=== PATIENT | female | born 1990 | race Hispanic/Latino ===

== ENCOUNTER 2023-07-06 23:01 | Emergency (ER) | payer OTHER ==
--- OUTSIDE RECORDS SUMMARY | 2023-07-06 23:04 | XMS REPORT | Continuity of Care Document ---
:1990 Author Organization [facility] t Address [address] [facility] [address] [place] [address] Care Team Providers Name Role Phone Estrella Ellis Primary Care Physician [phone] Serafin Fleming Attending Clinician Unavailable VICTORINA NASH Attending Clinician Unavailable VICTORINA NASH Attending Clinician Unavailable Nael SINGH, Lyric Venegas Attending Clinician Unavailable Trimester, [facility] Res-1st Attending Clinician Unavailable Jennifer Kincaid MD Attending Clinician JENNIFER KINCAID Attending Clinician Unavailable Doctor Unassigned, [place] Attending Clinician Unavailable Ultrasound, Krystle Attending Clinician Unavailable Estrella Ellis Attending Clinician [phone] Santosh Correa MD Attending Clinician [phone] SANTOSH CORREA Attending Clinician Unavailable ESTRELLA KAHN Attending Clinician Unavailable LabZaida Attending Clinician Unavailable Payers Payer Name Policy Type Policy Number Effective Date Expiration Date S willa [place]ICAID OF [place] [id number] 2023 00:00:00 Problems Condition Condition Condition Status Onset Resolution Last Treating Co mments Source Name Details Category Date Date Treatment Clinician Date UTI in UTI in Disease Active Overview: Univer s 9-26 Formattin i ty of 00:00: g of this [place] 00 note Medical might be Branch different from the original. Pending ezekiel Abnormal Abnormal Disease Active Overview: Un prasad maternal maternal 06-02 Formattin ity of glucose glucose 00:00: g of this [place] tolerance, tolerance, 00 note Me dical antepartum antepartum might be Branch different from the original. Failed 1hr pending 3hr, repeat 3hr at 26weeks-p assed Supervisio Supervisio Disease Active U nivers n of n of 9- ity of high-risk high-risk 00:00: [place] s 00 [facility] Branch Multiparit Multiparit Disease Active U nivers y y 05-29 ity of 00:00: [place] 00 Medical Branch History of History of Disease Active Overview : Univers 05-29 Formattin ity of section section 00:00: g of this [place] 00 note Medical might be Branch different from the original. x1 ROR from [facility]- ow transvers e c sec see scanned records Desires ERCS Over Over Disease Active Univers weight weight 05-29 ity of 00:00: [place] 00 Medical Branch Family Family Disease Active Univers history of history of 7-26 it y of Downs Downs 00:00: [place] syndrome syndrome 00 Medica l Branch Family Family Disease Active Univers history of history of 7-26 it y of autism autism 00:00: [place] 00 Medical Branch Supervisio Supervisio Disease Active U nivers n of other n of other 7-25 it y of high risk high risk 00:[place] Me dical antepartum antepartum Br anch , second , second trimester trimester BV BV Disease Active Univers (bacterial (bacterial 7-25 it y of vaginosis) vaginosis[place] Nausea and Nausea and Disease Active U nivers vomiting vomiting 7-25 ity of during during 00:00: [place] 00 [facility] prior to prior to Branch 22 weeks 22 weeks gestation gestation Body mass Body mass Disease Active Uni vers index index 7-25 ity of (BMI) of (BMI) of 00:00: [place] 23.0-23.9 23.0-23.9 00 Medi pelon in adult in adult Branch [id number] Breech Problem [facility] delivery, Clinic not applicable or unspecifie d fetus [id number] Single Problem [facility] live [facility] [id number] Encounter Problem [facility] for Clinic supervisio n of other normal , third trimester Allergies, Adverse Reactions, Alerts Allergy Allergy Status Severity Reaction(s) Onset Inactive Treating Comm ents Source Name Type Date Date Clinician NO KNOWN Drug Active Univers ALLERGIE Class ity of S [facility] Social History Social Habit Start Date Stop Date Quantity Comments Source ASSERTION 2023-04-24 [facility] 00:00:00 [facility] intake 2023-06-30 2023-06-30 0 /d [facility] 00:00:00 00:00:00 [facility] History of Social 2023-06-30 2023-06-30 Univers ity of function 00:00:00 00:00:00 [facility] Tobacco use and 2014-02-06 2014-02-06 Smokeless Universit y of exposure 00:00:00 00:00:00 tobacco non-user [facility] Sex Assigned At [birth year] Universit y of 00:00:00 00:00:00 [facility] Smoking Status Start Date Stop Date Source Unknown if ever smoked [facility] Never smoked tobacco [facility] [place] Medications Ordered Filled Start Stop Current Ordering Indication Dosage Frequency Signature Comments Components Source Medication Medication Date Date Medication? Clinician (SIG) Name Name ketorolac 2022-09 No 15mg 15 mg, Unive rs (TORADOL) 07-04 Slow IV ity of injection 02:00: 01:28 Push, [place] 15 mg 00 :00 ONCE, 1 Medical dose, On Branch Thu07/03/23 at 2100, Routine FENTanyl PF 2022-09 No 50ug 50 mcg, Un prasad (SUBLIMAZE 07-03 Slow IV ity o f (PF)) 00:15: 23:31 Push, [place] injection 00 :00 ONCE, 1 Medical 50 mcg dose, On Branch 07/03/23 at 1915, Routine ondansetron 2022-09- No 4mg 4 mg, Slow Univers (ZOFRAN 07-03 IV Push, ity of (PF)) 23:30: 23:31 ONCE, 1 [place] injection 4 00 :00 dose, On Medi pelon mg Fri Branch 07/03/23 at 1830, RAJ ondansetron 2022-09- No 4mg 4 mg, Slow Univers (ZOFRAN 0-27 10- IV Push, ity of (PF)) 18:00: 18:13 ONCE, 1 [place] injection 4 00 :00 dose, On Medi pelon mg Fri Branch 07/03/23 at 1300, RAJ morpHINE (4 2022-09- No 4mg 4 mg, Slow Univers mg/mL) 0-27 10-27 IV Push, ity of injection 4 18:00: 18:13 ONCE, 1 [place] mg 00 :00 dose, On Medical Fri Branch 07/03/23 at 1300, STAT ampicillin 2022-09- Yes [id number] 500mg Take 1 Univers 500 mg 0-20 10-31 capsule by ity of capsule 00:00: 04:59 mouth 4 [place] 00 :00 (four) Medical times Branch daily for 10 days. ampicillin 2022-09- Yes [id number] 500mg Take 1 Univers 500 mg 0-20 10-31 capsule by ity of capsule 00:00: 04:59 mouth 4 [place] 00 :00 (four) Medical times Branch daily for 10 days. ampicillin 2022-09- Yes [id number] 500mg Take 1 Univers 500 mg 0-20 10-31 capsule by ity of capsule 00:00: 04:59 mouth 4 [place] 00 :00 (four) Medical times Branch daily for 10 days. ampicillin 2022-09- Yes [id number] 500mg Take 1 Univers 500 mg 0-20 10-31 capsule by ity of capsule 00:00: 04:59 mouth 4 [place] 00 :00 (four) Medical times Branch daily for 10 days. ampicillin 2022-09- Yes [id number] 500mg Take 1 Univers 500 mg 0-20 10-31 capsule by ity of capsule 00:00: 04:59 mouth 4 [place] 00 :00 (four) Medical times Branch daily for 10 days. ampicillin 2022-09- Yes [id number] 500mg Take 1 Univers 500 mg 0-20 10-31 capsule by ity of capsule 00:00: 04:59 mouth 4 [place] 00 :00 (four) Medical times Branch daily for 10 days. ampicillin 2022-09- Yes [id number] 500mg Take 1 Univers 500 mg 0-20 10-31 capsule by ity of capsule 00:00: 04:59 mouth 4 [place] 00 :00 (four) Medical times Branch daily for 10 days. ampicillin 2022- Yes [id number] 500mg Take 1 Univers 500 mg 9-26 10-07 capsule by ity of capsule 00:00: 04:59 mouth 4 [place] 00 :00 (four) Medical times Branch daily for 10 days. ampicillin 2022- Yes [id number] 500mg Take 1 Univers 500 mg 9-26 10-07 capsule by ity of capsule 00:00: 04:59 mouth 4 [place] 00 :00 (four) Medical times Branch daily for 10 days. ampicillin 2022- No [id number] 500mg Take 1 Univers 500 mg 9-26 10-07 capsule by ity of capsule 00:00: 04:59 mouth 4 [place] 00 :00 (four) Medical times Branch daily for 10 days. Yes [id number] 1{tbl} Take 1 U nivers qmf44-laqe- 9-22 tablet by ity of folic acid 00:00: mouth in [place] 29 mg iron- 00 the Medical 1 mg per morning. Branch tablet Yes [id number] 1{tbl} Take 1 U nivers ikw36-qibj- 9-22 tablet by ity of folic acid 00:00: mouth in [place] 29 mg iron- 00 the Medical 1 mg per morning. Branch tablet Yes [id number] 1{tbl} Take 1 U nivers wmh32-pjmt- 9-22 tablet by ity of folic acid 00:00: mouth in [place] 29 mg iron- 00 the Medical 1 mg per morning. Branch tablet Yes [id number] 1{tbl} Take 1 U nivers tml47-lauu- 9-22 tablet by ity of folic acid 00:00: mouth in [place] 29 mg iron- 00 the Medical 1 mg per morning. Branch tablet Yes [id number] 1{tbl} Take 1 U nivers snn33-ckkd- 9-22 tablet by ity of folic acid 00:00: mouth in [place] 29 mg iron- 00 the Medical 1 mg per morning. Branch tablet Yes [id number] 1{tbl} Take 1 U nivers ixe52-zhtd- 9-22 tablet by ity of folic acid 00:00: mouth in [place] 29 mg iron- 00 the Medical 1 mg per morning. Branch tablet Yes [id number] 1{tbl} Take 1 U nivers qqn70-crpf- 9-22 tablet by ity of folic acid 00:00: mouth in [place] 29 mg iron- 00 the Medical 1 mg per morning. Branch tablet Yes [id number] 1{tbl} Take 1 U nivers ksj29-pxnn- 9-22 tablet by ity of folic acid 00:00: mouth in [place] 29 mg iron- 00 the Medical 1 mg per morning. Branch tablet Yes [id number] 1{tbl} Take 1 U nivers vie95-aorv- 9-22 tablet by ity of folic acid 00:00: mouth in [place] 29 mg iron- 00 the Medical 1 mg per morning. Branch tablet Yes [id number] 1{tbl} Take 1 U nivers wuq41-vgzu- 9-22 tablet by ity of folic acid 00:00: mouth in [place] 29 mg iron- 00 the Medical 1 mg per morning. Branch tablet Yes [id number] 1{tbl} Take 1 U nivers rzq01-xdex- 9-22 tablet by ity of folic acid 00:00: mouth in [place] 29 mg iron- 00 the Medical 1 mg per morning. Branch tablet Kurvelo Kurvelo No 1{table QD Kurvelo 0.15-30 0.15-30 2-09 t} 0.15-30 MG-MCG MG-MCG 00:00: MG-MCG 00 Vitafol Vitafol 2015-09 Yes Serafin 1 capsule H ope Ultra Ultra 1-14 [facility] 00:00: 00 Vitafol Vitafol 2015-09 No 1{capsu QD Vitafol Ultra Ultra 1-14 le} Ultra 29-0.6-0.4- 29-0.6-0.4- 00:00: 29-0.6-0.4 200 MG 200 MG 00 -200 MG Vitafol Vitafol 2015-09 No 1{capsu QD Vitafol Ultra Ultra 1-14 le} Ultra 29-0.6-0.4- 29-0.6-0.4- 00:00: 29-0.6-0.4 200 MG 200 MG 00 -200 MG Vitafol Vitafol 2015-09 No 1{capsu QD Vitafol Ultra Ultra 1-14 le} Ultra 29-0.6-0.4- 29-0.6-0.4- 00:00: 29-0.6-0.4 200 MG 200 MG 00 -200 MG Vitafol Vitafol No 1{capsu QD Vitafol Ultra Ultra 6-30 le} Ultra 29-0.6-0.4- 29-0.6-0.4- 00:00: 29-0.6-0.4 200 MG 200 MG 00 -200 MG Vitafol Vitafol No 1{capsu QD Vitafol Ultra Ultra 6-30 le} Ultra 29-0.6-0.4- 29-0.6-0.4- 00:00: 29-0.6-0.4 200 MG 200 MG 00 -200 MG Vitafol Vitafol No 1{capsu QD Vitafol Ultra Ultra 6-30 le} Ultra 29-0.6-0.4- 29-0.6-0.4- 00:00: 29-0.6-0.4 200 MG 200 MG 00 -200 MG Vitafol Vitafol No 1{capsu QD Vitafol Ultra Ultra le} Ultra 29-0.6-0.4- 29-0.6-0.4- 29-0.6-0.4 200 MG 200 MG -200 MG Vitafol Vitafol No 1{capsu QD Vitafol Ultra Ultra le} Ultra 29-0.6-0.4- 29-0.6-0.4- 29-0.6-0.4 200 MG 200 MG -200 MG Vitafol Vitafol No 1{capsu QD Vitafol Ultra Ultra le} Ultra 29-0.6-0.4- 29-0.6-0.4- 29-0.6-0.4 200 MG 200 MG -200 MG Immunizations Ordered Filled Date Status Comments Source Immunization Name Immunization Name Fluarix 0.5 ml Fluarix 0.5 ml 2016-06-26 Completed [facility] linic quadrivalent- quadrivalent- 16:40:00 preservative free preservative free Fluarix 0.5 ml Fluarix 0.5 ml 2016-06-26 Completed [facility] linic quadrivalent- quadrivalent- 16:40:00 preservative free preservative free Fluarix 0.5 ml Fluarix 0.5 ml 2016-06-26 Completed [facility] linic quadrivalent- quadrivalent- 16:40:00 preservative free preservative free IMM TDAP - ADULT IMM TDAP - ADULT 2014-06-06 Completed [facility] STOCK STOCK 17:17:00 IMM TDAP - ADULT IMM TDAP - ADULT 2014-06-06 Completed [facility] STOCK STOCK 17:17:00 IMM TDAP - ADULT IMM TDAP - ADULT 2014-06-06 Completed [facility] STOCK STOCK 17:17:00 Fluarix 0.5mL Fluarix 0.5mL 2014-06-06 [facility] Cli giovany (IIV4) 3+ Years (IIV4) 3+ Years 17:08:00 Single-Dose Single-Dose Fluarix 0.5mL Fluarix 0.5mL [facility]+ [facility] (IIV4) 3+ Years 17:08:00 Single-Dose Single-Dose Fluarix 0.5mL Fluarix 0.5mL 2014-06-06 [facility] giovany (IIV4) 3+ Years (IIV4) 3+ Years 17:08:00 Single-Dose Single-Dose Influenza Virus Unknown Completed Universit y of Vaccine Quad IM, [facility] dical Preserv and ABX Branch Free 6 MO-64 YRS (FLUCELVAX) Influenza Virus Unknown Completed Universit y of Vaccine Quad IM, [facility] dical Preserv and ABX Branch Free 6 MO-64 YRS (FLUCELVAX) Influenza Virus Unknown Completed Universit y of Vaccine Quad IM, [facility] dical Preserv and ABX Branch Free 6 MO-64 YRS (FLUCELVAX) Influenza Virus Unknown Completed Universit y of Vaccine Quad IM, [facility] dical Preserv and ABX Branch Free 6 MO-64 YRS (FLUCELVAX) Influenza Virus Unknown Completed Universit y of Vaccine Quad IM, [facility] dical Preserv and ABX Branch Free 6 MO-64 YRS (FLUCELVAX) Influenza Virus Unknown Completed Universit y of Vaccine Quad IM, [facility] dical Preserv and ABX Branch Free 6 MO-64 YRS (FLUCELVAX) Influenza Virus Unknown Completed Universit y of Vaccine Quad IM, [facility] dical Preserv and ABX Branch Free 6 MO-64 YRS (FLUCELVAX) Vital Signs Vital Name Observation Time Observation Value Comments Source Systolic blood 2023-07-04 01:30:00 102 mm[Hg] Univer sity of pressure [facility] Diastolic blood 2023-07-04 01:30:00 60 mm[Hg] Unive rsity of [facility] Heart rate 2023-07-04 01:30:00 85 /min [facility] Body temperature 2023-07-04 01:30:00 36.72 Zohra [facility] Respiratory rate 2023-07-04 01:30:00 16 /min [facility] Oxygen saturation in 2023-07-04 01:30:00 100 /min [facility] Arterial blood by [facility] Pulse oximetry Branch Body weight 2023-07-03 17:49:00 65.772 kg [facility] BMI 2023-07-03 17:49:00 24.13 kg/m2 [facility] Systolic blood 2023-06-30 14:23:00 114 mm[Hg] Univer sity of [facility] Diastolic blood 2023-06-30 14:23:00 72 mm[Hg] Unive rsity of [facility] Heart rate 2023-06-30 14:23:00 78 /min [facility] ty [facility] Body temperature 2023-06-30 14:23:00 35.83 [facility] 2023-06-30 14:23:00 16 /min [facility] Body height 2023-06-30 14:23:00 165.1 cm [facility] [place] [facility] Body weight 2023-06-30 14:23:00 75.978 kg [facility] BMI 2023-06-30 14:23:00 27.87 kg/m2 Universi ty of [place] [facility] Systolic blood 2023-06-26 15:29:00 117 mm[Hg] Univer sity of pressure [place] [facility] Diastolic blood 2023-06-26 15:29:00 71 mm[Hg] Unive rsity of pressure [place] [facility] Heart rate 2023-06-26 15:29:00 75 /min Universi ty of [place] [facility] Body temperature 2023-06-26 15:29:00 36.17 Zohra Univ ersity of [place] [facility] Respiratory rate 2023-06-26 15:29:00 18 /min Univ ersity of [place] [facility] Body height 2023-06-26 15:29:00 165.1 cm Universi ty of [place] [facility] Body weight 2023-06-26 15:29:00 76.295 kg Universi ty of [place] [facility] BMI 2023-06-26 15:29:00 27.99 kg/m2 Universi ty of [place] [facility] Systolic blood 2023-05-29 19:12:00 96 mm[Hg] Univer sity of pressure [place] [facility] Diastolic blood 2023-05-29 19:12:00 68 mm[Hg] Unive rsity of pressure [place] [facility] Heart rate 2023-05-29 19:12:00 77 /min Universi ty of [place] [facility] Body temperature 2023-05-29 19:12:00 35.94 Zohra Univ ersity of [place] [facility] Respiratory rate 2023-05-29 19:12:00 18 /min Univ ersity of [place] [facility] Body height 2023-05-29 19:12:00 165.1 cm Universi ty of [place] [facility] Body weight 2023-05-29 19:12:00 75.206 kg Universi ty of [place] [facility] BMI 2023-05-29 19:12:00 27.59 kg/m2 Universi ty of [place] [facility] temperature 2022-10-16 10:30:00 98.8 [degF] [facility] heart rate 2022-10-16 10:30:00 73 /min [facility] height-cm 2022-10-16 10:30:00 162.56 cm [facility] gi[facility]any weight-kg 2022-10-16 10:30:00 74.48 kg [facility]any bmi 2022-10-16 10:30:00 28.18 kg/m2 [facility] giovany blood pressure 2022-10-16 10:30:00 132 mm[Hg] [facility] systolic blood pressure 2022-10-16 10:30:00 80 mm[Hg] [facility] diastolic Procedures Procedure Date / Time Performing Clinician Source Performed US FIRST 2023-07-03 22:18:47 Victorina Nash [facility] TRIMESTER LESS THAN 14 Medical B ranch WEEKS WITH TRANSVAGINAL COMP. METABOLIC PANEL 2023-07-03 18:12:00 Zia Nashemy [facility] ([id number]) [facility] TOTAL BETA HCG ASSAY 2023-07-03 18:12:00 Zia Nashemy [facility] CBC WITH DIFF 2023-07-03 18:12:00 [facility] PROTHROMBIN TIME / INR 2023-07-03 18:12:00 [facility] HB ABO GROUPING 2023-07-03 18:12:00 [facility] o [facility] CONSENT/REFUSAL FOR 2023-07-03 16:49:12 Doctor Unassigned, No [facility] DIAGNOSIS AND TREATMENT Name [facility] TOTAL BETA HCG ASSAY 2023-06-30 15:46:00 Juan J Haile [facility] EXTERNAL PROVIDER 2023-06-29 05:01:00 Doctor Unassigned, No Univ [facility] RECORDS Name [facility] FIRST TRIMESTER 2023-06-26 17:15:00 Estrella Kahn [facility] ULTRASOUND Medical Branch FLU VACC ([id number]), 6 2023-06-26 15:43:16 Estrella Kahn [facility] MO-64 YRS, .5ML, IM, Medical Bra [facility] QUAD (FLUCELVAX) POCT URINALYSIS 2023-06-26 15:31:00 Estrella Kahn [facility] 3 HR GLUCOSE TOLERANCE 2023-06-05 16:43:00 Estrella Kahn [facility] 2 HR GLUCOSE TOLERANCE 2023-06-05 15:43:00 Estrella Kahn [facility] 1 HR GLUCOSE TOLERANCE 2023-06-05 14:43:00 Estrella Kahn [facility] GLUCOSE FASTING 2023-06-05 13:43:00 Estrella Kahn [facility] 3 HR GLUCOSE TOLERANCE 2023-06-05 13:43:00 Estrella Kahn [facility] POCT URINALYSIS W/O 2023-05-29 19:13:00 Estrella Kahn Uni versity [facility] SPECIFIC GRAVITY [facility] POCT TEST 2023-05-29 19:00:00 Estrella Kahn Uni [facility] ASSIGNMENT OF BENEFITS 2023-05-29 18:30:12 Doctor Unassigned, No [facility] Encounters Start End Encounter Admission Attending Care Care Encounter Source Date/Time Date/Time Type Type Clinicians Facility Department ID 2022-10-20 Outpatient THIERRY Fleming T[place]MAGE [id number] [facility] 11:39:01 Serafin 0213 [facility] 2022-10-16 Outpatient Lonnie [facility] [id number] [facility] 09:44:00 Serafin 0209 [facility] 2022-09-12 Outpatient THIERRY Fleming [place] [id number] [facility] 11:19:00 Serafin 0106 [facility] 2023-07-07 2023-07-07 Outpatient R [facility] [id number] Univers 09:40:00 09:40:00 silviay [facility] 2023-07-03 2023-07-03 Emergency X VICTORINA NASH [facility] ERT 1 [id number] Univers 12:02:00 20:44:00 [facility] 2023-07-03 2023-07-03 Emergency Saad, TRAUMA [id number] Univers 12:02:00 20:44:00 Victorina PEREZ 350.1.13.10 it [place] [id number] [address] 2023-07-03 2023-07-03 Outpatient P [facility] [id number] Univers 15:30:00 15:30:00 ity of [facility] 2023-07-03 2023-07-03 Nurse YUDITH Nayak [id number] Univers 00:00:00 00:00:00 Triage Lyric Venegas LYSSA 350.1.13.10 it y of HOSPITAL 4.2.7.2.686 [place] as [id number] [facility] 019 Branch 2023-06-30 2023-06-30 Routine Trimester, [facility] Res-1st UNIVERSIT [id number] Univers 09:20:00 10:50:48 Jennifer Kincaid [facility] 350.1.13.[address] [facility] 4.2.7.2.[place] [id number] [facility] 113 Branch 2023-06-30 2023-06-30 Outpatient R AMPARO [facility] [id number] Univers 09:20:00 10:50:48 [facility] 2023-06-29 2023-06-29 Orders Doctor YUDITH [id number] Univers 00:00:00 00:00:00 Only Unassigned, LYSSA 350.1.13.10 ity of [place] [facility] 4.2.7.2.686 [place] as [id number] [facility] 009 Latta 2023-06-26 2023-06-26 Telephone Information Supervisor Ultrasound, [facility] 1.2 .840.114 [id number] Univers 11:30:00 12:17:01 Visit Estrella Kahn [employer] 350.1.13. 10 [facility] 4.2.7.2 .686 [place] MATERNAL [id number] Med ical & CHILD [address] [place] [address] 2023-06-26 2023-06-26 Outpatient P SUNNY [facility] [id number] Univers 11:30:00 12:17:01 SANTOSH ity [facility] 2023-06-26 2023-06-26 [facility]ine [facility] [id number] Univers 10:30:00 12:16:52 Estrella C [employer] 350.1.13.10 ity of Visit [facility] 4.2.7.2.686 [place] as MATERNAL [id number] [facility] & CHILD [address] [place] [address] 2023-06-05 2023-06-05 Outpatient R CRISS [facility] [id number] Univers 08:30:00 08:46:41 ESTRELLA velázquez o f [facility] 2023-06-05 2023-06-05 Telephone Information Supervisor Lab, Ang-Rmchp [facility] 1.2.840. [id number] Univers 08:30:00 08:46:41 Visit Criss Estrella C [employer] 350.1.13. 10 ity of REGIONAL 4.2.7.2.686 [place] as MATERNAL [id number] [facility] & [address] 2023-06-02 2023-06-02 Telephone [facility] [id number] Univers 00:00:00 00:00:00 Estrella C [employer] HANGER 350.1.13.10 ity of REGIONAL 4.2.7.2.686 [place] as MATERNAL [id number] [facility] & [address] 2023-05-29 2023-05-29 Initial [facility] [id number] Univers 13:45:00 15:09:15 Estrella C [employer]ER 350.1.13.10 ity of Visit [facility] 4.2.7.2.686 [place] as MATERNAL [id number] [facility] & CHILD [address] [place] [address] 2023-05-29 2023-05-29 [facility] [id number] Univers 13:45:00 15:09:15 ESTRELLA velázquez o [facility] 2023-05-29 2023-05-29 Orders Doctor ZURITA 1.2.840.114 [id number] Univers 00:00:00 00:00:00 Only Unassigned, LYSSA 350.1.13.10 ity of [place] [facility] 4.2.7.2.686 [place] as [id number] [place] [address] Branch 2022-12-24 2022-12-24 Outpatient [facility] Remy 14:45:54 14:45:54 [id number] F Raul 2022-10-16 2022-10-16 (NEW [facility]) THIERRY GUADARRAMA [id number] [facility] 00:00:00 00:00:00 [facility] 2022-10-16 2022-10-16 (TEL) THIERRY GUADARRAMA [id number] Ho pe 00:00:00 00:00:00 [facility] 2022-09-17 2022-09-17 Outpatient [facility] Remy 15:49:57 15:49:57 [id number] F Raul 2018-06-03 2018-06-03 Outpatient [facility] [id number] [facility] 15:15:00 15:15:00 [facility] Results Test Description Test Time Test Comments Results Result Comments Source TOTAL [facility]ANT[facility] 2023-07-03 21:41:09 Test Item Value Reference Range Interpretation Comme nts BETA HCG (test code = 05360.00 See_Comment [Auto mated message] The [id number]) system which ge nerated this result transmit tigist reference range : Non- fe male and male patients: <5 mIU/mL. The reference r татьяна was not used to interpr et this result as danette l/abnormal. ELIAS (test code = ELIAS) Gestational Age ?Range (mIU/mL) 1-10 ?Weeks ?[id number] Weeks ?45067-10266918-84 Weeks ?4261-09037843-36 Weeks ?1780-750902 Biotin has been reported to cause a negative bias, interpret results relative to patient's use of biotin. [facility]. METABOLIC PANEL ([id number])2023-07-03 19:17:21 Test Item Value Reference Range Interpretation Comments NA (test code = 141 mmol/L 135-145 0733998101) K (test code = 4.0 mmol/L 3.5-5.0 5853400099) CL (test code = 106 mmol/L 98-108 3416061649) CO2 TOTAL (test code = 25 mmol/L 23-31 8563222224) AGAP (test code = 10 2-16 3557752480) BUN (test code = 6 mg/dL 7-23 L 5003497507) GLUCOSE (test code = 87 mg/dL 70-110 2639783768) CREATININE (test code = 0.58 mg/dL 0.50-1.04 3439490972) TOTAL BILI (test code = 1.1 mg/dL 0.1-1.2 1549450459) CALCIUM (test code = 9.8 mg/dL 8.6-10.6 6262804781) T PROTEIN (test code = 7.6 g/dL 6.3-8.2 3290675205) ALBUMIN (test code = 4.6 g/dL 3.5-5.0 1991453144) ALK PHOS (test code = 87 U/L 34-122 3179986210) ALTv (test code = 44 U/L 5-35 H 1741-6) AST(SGOT) (test code = 32 U/L 13-40 5329464232) eGFR (test code = 121.3 mL/min/1.73m2 0338627124) ELIAS (test code = ELIAS) Association of Glomerular Filtration Rate (GFR) and Staging of Kidney Disease* + --+ --+ ------+| GFR (mL/min/1.73 m2) ?| With Kidney Damage ?| ?Without Kidney Damage+ --------+ --------+ +| ?>90 ?| ?Stage one ?| ? Normal ?+ ---+ ---+ -------+| ?60-89 ?| ?Stage two ?| ? Decreased GFR ? + --+ --+ ------+| ?30-59 ?| ?Stage three ?| ? Stage three ? + --+ --+ ------+| ?15-29 ?| ?Stage four ? | ? Stage four ?+ ---+ ---+ -------+| ?<15 (or dialysis) ? ?| ?Stage five ? | ? Stage five ?+ ---+ ---+ -------+ *Each stage assumes the associated GFR level has been in effect for at least three months. ?Stages 1 to 5, with or without kidney disease, indicate chronic kidney disease. Notes: Determination of stages one and two (with eGFR >59mL/min/1.73 m2) requires estimation of kidney damage for at least three months as defined by structural or functional abnormalities of the kidney, manifested by either:Pathological abnormalities or Markers of kidney damage (including abnormalities in the composition of the blood or urine or abnormalities in imaging tests). Lab Interpretation Abnormal (test code = 23635-6) [facility] TexasProthrombin Time / [id number] 18:46:59 Test Item Value Reference Range Interpretation Comments PROTIME PATIENT (test 11.8 See_Comment [Auto mated message] code = 5964-2) The system [employer] ich generated this result transmitted ref erence range: 10.1 - 1 2.6 Seconds. The re ference range was not u sed to interpret this result as normal/abnor mal. INR (test code = 6301-6) 1.0 Nor mal INR <1.1; Warfarin Therap eutic range 2.0 to 3. 0 or 2.5 to 3.5, dep ending upon the indica tions. Lab Interpretation (test Normal code = 68255-2) [facility] TexasCBC WITH [id number] 18:44:57 Test Item Value Reference Range Interpretation Comments WBC (test code = 8.22 See_Comment [Automated 1190-2) message] The sy stem which generated this result transmitted reference range : 4.30 - 11.10 10*3/?L. The reference range was not used to interpret this result as normal/abnormal . RBC (test code = 4.42 See_Comment [Automated 729-8) message] The sy stem which generated this result transmitted reference range : 3.93 - 5.25 10*6/?L. The reference range was not used to interpret this result as normal/abnormal . HGB (test code = 13.7 g/dL 11.6-15.0 718-7) HCT (test code = 40.5 % 35.7-45.2 4544-3) MCV (test code = 91.6 fL 80.6-95.5 787-2) MCH (test code = 31.0 pg 25.9-32.8 785-6) MCHC (test code = 33.8 g/dL 31.6-35.1 786-4) RDW-SD (test code = 39.7 fL 39.0-49.9 99310-9) RDW-CV (test code = 11.8 % 12.0-15.5 L 788-0) PLT (test code = 192 See_Comment [Automated 777-3) message] The sy stem which generated this result transmitted reference range : 166 - 358 10*3/ ?L. The reference r татьяна was not used to interpret this result as normal/abnormal . MPV (test code = 11.4 fL 9.5-12.9 78838-0) NRBC/100 WBC (test 0.0 See_Comment [Automat ed code = 1248888839) message] The system which generated this result transmitted reference range : 0.0 - 10.0 /100 WBCs. The refer ence range was not u sed to interpret th is result as normal/abnormal . NRBC x10^3 (test code See_Comment [Auto mated = 1431059763) message] The s ystem which generated this result transmitted reference range : 10*3/?L. The reference range was not used to interpret this result as normal/abnormal . GRAN MAT (NEUT) % 67.5 % (test code = 770-8) IMM GRAN % (test code 0.20 % = 5091902093) LYMPH % (test code = 26.9 % 736-9) MONO % (test code = 4.5 % 5905-5) EOS % (test code = 0.5 % 713-8) BASO % (test code = 0.4 % 706-2) GRAN MAT x10^3(ANC) 5.55 10*3/uL 1.88-7.09 (test code = 8592435406) IMM GRAN x10^3 (test 0.00-0.06 code = 7539198666) LYMPH x10^3 (test code 2.21 10*3/uL 1.32-3.29 = 731-0) MONO x10^3 (test code 0.37 10*3/uL 0.33-0.92 = 742-7) EOS x10^3 (test code = 0.04 10*3/uL 0.03-0.39 711-2) BASO x10^3 (test code 0.03 10*3/uL 0.01-0.07 = 704-7) Lab Interpretation Abnormal (test code = 28119-5) [facility] TexasType and Screen - ONCE [id number] 18:40:00 Test Item Value Reference Range Interpretation Comments ABO & RH (test code = 20) O POSITIVE IAT (test code = 1185) Negative [facility] TexasPONC URINALYSIS W SPECIFIC [id number] 15:31:00 Test Item Value Reference Range Interpretation Comments POCT U SP GRAV (test code = 3255) . 1.005-1.025 POCT PH U (test code = 3254) . 5-8 POCT U LEUK EST (test code = 3263) . Negative - Negative POCT U NIT (test code = 3262) . Negative - Negative POCT U PROT (test code = 3259) TRACE Negative - Negative POCT U GLU (test code = 3256) NEG Negative - Negative POCT U KETONE (test code = 3258) . Negative - Negative POCT U UROBILI (test code = 3260) . 0.2-1 POCT U BILI (test code = 3261) . Negative - Negative POCT U BLD (test code = 3257) . Negative - Negative POCT U COLOR (test code = 3266) . POCT U APPEAR (test code = 3267) . [facility] HR GLUCOSE TOLERANCE [id number] 05:25:57 Test Item Value Reference Range Interpretation Comments GLUC 3 HR (test code = 0383679340) 81 mg/dL 70-110 Lab Interpretation (test code = Normal 81399-9) [facility] TexasPOCT URINALYSIS W/O SPECIFIC [id number] 19:14:00 Test Item Value Reference Range Interpretation Comments POCT PH U (test code = 3254) 6 mg/dl 5-8 POCT U LEUK EST (test code = 1+ Negative - Negative 3263) POCT U NIT (test code = 3262) neg Negative - Negative POCT U PROT (test code = 3259) trace Negative - Negative POCT U GLU (test code = 3256) neg Negative - Negative POCT U KETONE (test code = 3258) neg Negative - Negative POCT U BLD (test code = 3257) neg Negative - Negative [facility] TexasPOCT [id number] 19:00:00 Test Item Value Reference Range Interpretation Comments POCT PREG (test code = 1605) Positive On board controls acceptable with C Yes Line (test code = 3574) POCT PREG LOT # (test code = 3575) POCT PREG TEST DATE (test code = 3576) [facility] TexasPa age-based with STD [id number] 00:00:00 Test Item Value Reference Range Interpretation Comments 46455-1 (test code = 34872-1) . Chlamydia, Nuc. Acid Amp (test code Negative Negative = 28804-5) DIAGNOSIS: (test code = 93659-4) Gonococcus, Nuc. Acid Amp (test code Negative Negative = 56439-9) HPV Aptima (test code = 85641-8) Negative Negative Performed by: (test code = 67350-8) Specimen adequacy: (test code = 04727-4) Test Methodology: (test code = 40512-3)"
[2023-07-06] MEDS ORDERED: NA CHLORIDE 0.9% 1,000 ML ONE (23:42)
[2023-07-06 23:45] LABS: Absolute Lymphocytes (CBC) 2.9 K/uL (0.7-4.9); Lymphocytes % 27.3 % (15.3-44.8); MCV 92.3 fL (80-100); MPV 9.6 fL (7.6-11.3); Platelets 195 thou/uL (152-406); RBC Red Blood Cell Count 4.33 M/uL (3.86-4.86)
[2023-07-06] MEDS ORDERED: ONDANSETRON 4 MG/2 ML VIAL ONE (23:58)
[2023-07-06] MEDS ORDERED: MORPHINE 4 MG/ML SYR ONE (23:58)
--- NOTE | 2023-07-07 01:00 | ER ---
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 , 12 WK bp PREG. Coronavirus screen: At this time, the client does not indicate any symptoms associated with coronavirus-19. Ebola Screen: No symptoms or risks identified at this time. Initial Sepsis Screen: Does the patient meet any 2 criteria? No. Patient's initial sepsis screen is negative. Does the patient have a suspected source of infection? No. Patient's initial sepsis screen is negative. Risk Assessment: Do you want to hurt yourself or someone else? Patient reports no desire to harm self or others. Onset of symptoms was July 06, 2023 at 22:30. 23:16 Method Of Arrival: Wheelchair bp 23:16 Acuity: SARA 3 bp Triage Assessment: 23:17 General: Appears distressed, Behavior is cooperative, appropriate for age, anxious. bp Pain: Complains of pain in pelvis. : Reports vaginal bleeding that is with clots. Derm: Skin is pale. Historical: - Allergies: 23:17 No Known Allergies; bp - Home Meds: 23:17 None [Active]; bp - PMHx: 23:17 None; bp - Immunization history:: Adult Immunizations up to date. - Social history:: Smoking status: Patient denies any tobacco usage or history of. - Family history:: not pertinent. Screenin/31 00:25 [facility] ED Fall Risk Assessment (Adult) History of falling in the last 3 months, nw1 including since admission No falls in past 3 months (0 pts) Confusion or Disorientation No (0 pts) Intoxicated or Sedated No (0 pts) Impaired Gait No (0 pts) Mobility Assist Device Used No (0 pt) Altered Elimination No (0 pt) Score/Fall Risk Level 0 - 2 = Low Risk Oriented to surroundings, Maintained a safe environment, Educated pt \T\ family on fall prevention, incl call for assistance when getting out of bed, Assessed \T\ reinforced patient's understanding of fall precautions, Provided non-skid footwear, Hourly rounding (assess needs \T\ fall precautionary measures) done, Used ambulatory aids as needed (educated on \T\ assisted with). Abuse screen: Denies threats or abuse. Denies injuries from another. Nutritional screening: No deficits noted. Tuberculosis screening: No symptoms or risk factors identified. Assessment: 00:12 General: Appears uncomfortable, Behavior is calm, cooperative, appropriate for age. nw1 Neuro: No deficits noted. Cardiovascular: No deficits noted. Respiratory: No deficits noted. GI:. GI: No deficits noted. Reports lower abdominal pain, upper abdominal pain, Pt is 12 weeks and was told by [facility] that she is miscarrying. Pt started feeling symptoms today at 1999. Pt is currently passing blood and blood clots. States discomfort. : No deficits noted. Derm: No deficits noted. Musculoskeletal: No deficits noted. 01:19 Reassessment: PT UP TO RESTROOM WITH TO ASSIST. nw1 Vital Signs: 07/06 23:16 BP 111 / 79; Pulse 89; Resp 18; Temp 98; Pulse Ox 98% ; Weight 75.75 kg; Height 5 ft. 5 bp in. ; 07/07 00:16 BP 128 / 84; Pulse 85; Resp 17; Pulse Ox 100% on R/A; nw1 01:18 BP 116 / 59; Pulse 81; Resp 16; Pulse Ox 100% on R/A; nw1 07/06 23:16 Body Mass Index 27.79 (75.75 kg, 165.1 cm) bp Vitals: 01:18 Cardiac Rhythm Assessment Regular Sinus rhythm. nw1 [place]aritan Coma Score: 00:25 Eye Response: spontaneous(4). Motor Response: obeys commands(6). Verbal Response: nw1 oriented(5). Total: 15. ED Course: 07/06 23:07 Patient arrived in ED. jj6 23:08 Akash Barajas MD is Attending Physician. sp4 23:17 Triage completed. bp 23:17 Arm band placed on. bp 23:25 Whitney Lebron, RN is Primary Nurse. nw1 23:34 CBC with Diff Sent. cg3 23:34 CMP Sent. cg3 23:34 Inserted saline lock: 20 gauge in right antecubital area, using aseptic technique. cg3 Blood collected. 23:52 Quantitative Hcg Sent. 23:52 CBC with Diff Sent. 23:52 CMP Sent. 23:52 Lipase Sent. nw 23:52 Urinalysis w/ reflexes Sent. nw07/07 00:18 US OB Limited In Process Unspecified. EDMS 00:25 Patient has correct armband on for positive identification. Placed in gown. Bed in low nw1 position. Call light in reach. Side rails up X2. Adult w/ patient. Provided Education on: POC. Client placed on continuous cardiac and pulse oximetry monitoring. NIBP monitoring applied. Door closed. Noise minimized. Warm blanket given. Verbal reassurance given. 00:25 Assist provider with pelvic exam: Set up pelvic tray. Performed by Akash Barajas MD nw1 Patient tolerated poorly. 00:30 Initiated transfer with Carmen at [facility]. rv1 00:53 [facility] by Dr. Sanchez. rv1 01:32 Called Van with EMS for transfer truck, given 20 min ETA. rv1 Administered Medications: 07/06 23:43 Drug: NS 0.9% IV 1000 ml IV at 1 bolus Per protocol; 1000 mL bolus Route: IV; Rate: 1 nw bolus; Site: right antecubital; 23:52 Drug: morphine IVP or IV 4 mg IVP once over 4 mins Route: IVP; Infused Over: 4 mins; nw1 Site: right antecubital; 07/07 00:05 Follow up: Response: No adverse reaction 07/06 23:52 Drug: Ondansetron IVP 4 mg IVP once; over 2 minutes Route: IVP; Site: right antecubital;nw07/07 00:05 Follow up: Response: No adverse reaction :26 Drug: D5-NS IV 1000 ml IV at 125 ml/hr continuous Route: IV; Rate: 125 ml/hr; Site: nw1 right antecubital; : Drug: Ketorolac IVP 30 mg IVP once Route: IVP; Site: right antecubital; nw1 :27 Drug: morphine IVP or IV 4 mg IVP once over 4 mins Route: IVP; Infused Over: 4 mins; nw1 Site: right antecubital; 01:27 Drug: Ondansetron IVP 4 mg IVP once; over 2 minutes Route: IVP; Site: right antecubital;nw1 Medication: 00:25 VIS not applicable for this client. nw1 Outcome: 00:59 ER care complete, transfer ordered by . [email or web address] 02:08 Transferred by ground EMS to [facility], nw1 02:08 Condition: stable 02:08 Demonstrated understanding of need for transfer 02:09 Patient left the ED. nw1 Signatures: Dispatcher [employer] EDBlayne Awad, RN RN Marry Poe6 Raquel Putnam rv1 Akash Barajas MD MD sp4 Denae Faust 3 Whitney Lebron RN RN nw1
--- NOTE | 2023-07-07 01:00 | EDPHYS ---
Physician Documentation [facility] Name: Jenn Mast Age: 32 yrs Sex: Female : 1990 Arrival Date: 07/06/2023 Time: 23:01 Bed 18 Private MD: ED Physician Akash Barajas HPI: 07/06 23:08 This 32 yrs old Female presents to ER via Unassigned with complaints of Est 12 sp4 weeks gestation, Pelvic Pain, Vaginal Bleeding. 23:53 42-year-old female 002 at 12 weeks GA by sonogram presents with worsening vaginal sp4 bleeding. LMP 04/10/2023 patient is 12 weeks 3 days by last menstrual period. Patient states on Thursday, 3 days ago she has developed some vaginal bleeding so went to [facility] in [place] and she was informed that there are no heart tones. She was informed that she is expected to miscarry. She was released home. Today she developed painful contractions and worsening vaginal bleeding associated with passing some blood clots.. Patient is acutely uncomfortable on presentation. . Historical: - Allergies: 23:17 No Known Allergies; bp - Home Meds: 23:17 None [Active]; bp - PMHx: 23:17 None; bp - Immunization history:: Adult Immunizations up to date. - Social history:: Smoking status: Patient denies any tobacco usage or history of. - Family history:: not pertinent. ROS: 23:53 Positive for pelvic pain, vaginal bleeding, sp4 23:53 Constitutional: Negative for fever, chills, and weight loss, 23:53 All other systems are negative, Exam: 23:53 Constitutional: This is a well developed, well nourished patient who is awake, alert, sp4 and in no acute distress, uncomfortable appearing female. Pale appearing Head/Face: Normocephalic, atraumatic. Eyes: Pupils equal round and reactive to light, extra-ocular motions intact. Lids and lashes normal. Conjunctiva and sclera are not injected. Cornea within normal limits. Periorbital areas with no swelling, redness, or edema. ENT: Nares patent. No nasal discharge, no septal abnormalities noted. Tympanic membranes are normal and external auditory canals are clear. Oropharynx with no redness, swelling, or masses, exudates, or evidence of obstruction, uvula midline. Mucous membranes moist. Neck: Trachea midline, no thyromegaly or masses palpated, and no cervical lymphadenopathy. Supple, full range of motion without nuchal rigidity, or vertebral point tenderness. Chest/axilla: Normal chest wall appearance and motion. Nontender with no deformity. No lesions are appreciated. Cardiovascular: Regular rate and rhythm with a normal S1 and S2. No gallops, murmurs, or rubs. Normal PMI, no JVD. No pulse deficits. Respiratory: Lungs have equal breath sounds bilaterally, clear to auscultation and percussion. No rales, rhonchi or wheezes noted. No increased work of breathing, no retractions or nasal flaring. Abdomen/GI: Soft, non-tender, with normal bowel sounds. No distension or tympany. No guarding or rebound. No evidence of tenderness throughout. Back: No spinal tenderness. No costovertebral tenderness. Skin: Warm, dry with normal turgor. Normal color with no rashes, no lesions, and no evidence of cellulitis. MS/ Extremity: Pulses equal, no cyanosis. Neurovascular intact. Full, normal range of motion. Neuro: Awake and alert, GCS 15, oriented to person, place, time, and situation. Cranial nerves II-XII grossly intact. Motor strength 5/5 in all extremities. Sensory grossly intact. Psych: Awake, alert, with orientation to person, place and time. 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 Otherwise no rashes no lesions no other significant findings. There is significant tenderness on pelvic exam with a speculum. , Vital Signs: 07/06 23:16 BP 111 / 79; Pulse 89; Resp 18; Temp 98; Pulse Ox 98% ; Weight 75.75 kg; Height 5 ft. 5 bp in. ; 07/07 00:16 BP 128 / 84; Pulse 85; Resp 17; Pulse Ox 100% on R/A; nw1 01:18 BP 116 / 59; Pulse 81; Resp 16; Pulse Ox 100% on R/A; nw1 07/06 23:16 Body Mass Index 27.79 (75.75 kg, 165.1 cm) bp Cathleen Coma Score: 00:25 Eye Response: spontaneous(4). Motor Response: obeys commands(6). Verbal Response: nw1 oriented(5). Total: 15. MDM: 07/06 23:19 Patient medically screened. sp4 07/07 00:46 ED course: US - TECHNIQUE: Transvaginal images were obtained. FINDINGS: Uterus: sp4 Anteverted, measuring 10.6 x 4.9 x 7.0 cm. No myometrial mass. Gestational sac/Yolk sac/ pole: None identified. Endometrium is ill-defined due to some prominent shadowing in this region. Question of some heterogeneous contents in the cervix. There is some internal blood flow in this region which could be due to retained products of conception. Right ovary: Not visualized. Left ovary: Not visualized. Adnexa: No additional abnormality. Free fluid: None identified. IMPRESSION: No intrauterine is identified. Endometrium is well-defined due to some shadowing. There may be some heterogeneous contents in the cervix with internal blood flow in this region, concerning for retained products of onception. . 00:56 Differential diagnosis: molar preganancy, ovarian cyst, postcoital bleeding. Data sp4 reviewed: vital signs, nurses notes, lab test result(s), radiologic studies, ultrasound. Consideration of Admission/Observation Escalation of care including admission/observation considered. Management of patient was discussed with the following: Genetics Nurse: CUT ORDER HAND Dr. Sanchez . ED course: Patient was discussed with Dr. Sanchez with [facility] F[facility]NA[facility] OPER[facility]. Patient is stable for transfer. Patient may benefit from D\T\C. Dr. Sanchez has agreed to accept patient to the [facility] emergency room. . 07/06 23:08 Order name: CBC with Diff; Complete Time: 00:28 sp4 07/06 23:08 Order name: CMP; Complete Time: 04:00 sp4 07/06 23:08 Order name: Lipase; Complete Time: 04:00 sp4 07/06 23:08 Order name: Urinalysis w/ reflexes; Complete Time: 04:00 sp4 07/06 23:09 Order name: Quantitative Hcg; Complete Time: 04:00 sp4 07/06 23:09 Order name: Abo/rh Typing; Complete Time: 00:28 sp4 07/06 23:09 Order name: US OB Limited sp4 07/06 23:08 Order name: IV Saline Lock; Complete Time: 23:34 sp4 07/06 23:09 Order name: Labs collected and sent; Complete Time: 23:34 sp4 07/06 23:47 Order name: Misc. Order: RECOLLECT GREEN TOP; Complete Time: 00:51 rv1 07/07 00:14 Order name: Pelvic Exam Setup; Complete Time: 00:51 lg3 07/07 00:28 Order name: NPO; Complete Time: 00:51 sp4 Administered Medications: 07/06 23:43 Drug: NS 0.9% IV 1000 ml IV at 1 bolus Per protocol; 1000 mL bolus Route: IV; Rate: 1 nw1 bolus; Site: right antecubital; 23:52 Drug: morphine IVP or IV 4 mg IVP once over 4 mins Route: IVP; Infused Over: 4 mins; nw1 Site: right antecubital; 07/07 00:05 Follow up: Response: No adverse reaction nw1 07/06 23:52 Drug: Ondansetron IVP 4 mg IVP once; over 2 minutes Route: IVP; Site: right antecubital;nw1 07/07 00:05 Follow up: Response: No adverse reaction 01:26 Drug: D5-NS IV 1000 ml IV at 125 ml/hr continuous Route: IV; Rate: 125 ml/hr; Site: nw1 right antecubital; 01:26 Drug: Ketorolac IVP 30 mg IVP once Route: IVP; Site: right antecubital; nw1 01:27 Drug: morphine IVP or IV 4 mg IVP once over 4 mins Route: IVP; Infused Over: 4 mins; nw1 Site: right antecubital; 01:27 Drug: Ondansetron IVP 4 mg IVP once; over 2 minutes Route: IVP; Site: right antecubital;nw1 Disposition Summary: 07/07/23 00:59 Transfer Ordered Notes: Transfer Location: [facility]-System sp4 Reason: Higher level of care sp4 Condition: Fair sp4 Problem: new sp4 Symptoms: have improved sp4 Accepting Physician: Dr. Sanchez CUT ORDER HAND (07/07/23 02:09) nw1 Diagnosis - Incomplete spontaneous with other complications sp4 - Spontaneous , incomplete with persistent hemorrhage sp4 Forms: - Medication Reconciliation Form sp4 - SBAR form sp4 Signatures: Dispatcher [employer] Blayne Huff, RN RN bp Lexy Foote RN RN lg3 Raquel Putnam rv1 Akash Barajas MD MD sp4 Whitney Lebron RN RN nw1 Corrections: (The following items were deleted from the chart) 02:09 00:59 Dr. Sanchez CUT ORDER HAND sp4 nw1
[2023-07-07 01:07] LABS: Albumin 3.3 g/dL (3.4-5.0); Bilirubin Total 0.5 mg/dL (0.2-1.0); Potassium 3.7 mEq/L (3.5-5.1); Protein, Total 6.5 g/dL (6.4-8.2)
[2023-07-07] MEDS ORDERED: ONDANSETRON 4 MG/2 ML VIAL ONE (01:08)
[2023-07-07] MEDS ORDERED: KETOROLAC 30 MG/ML INJ ONE (01:08)
[2023-07-07] MEDS ORDERED: MORPHINE 4 MG/ML SYR ONE (01:08)
[2023-07-07] MEDS ORDERED: D5 0.9 NS 1,000 ML IV ONE (01:09)
[2023-07-07 01:50] LABS: Specific Gravity 1.008 (1.005-1.030); Urine Bacteria <20 /HPF (<20); Urine Bilirubin NEGATIVE (Negative); Urine Blood 3+ (OVER) (Negative); Urine Clarity Turbid (Clear); Urine Color Colorless (Yellow); Urine Glucose NEGATIVE (Negative); Urine Protein TRACE (Negative); Urine RBC >50 /HPF (None Seen); Urine Urobilinogen Normal (Normal); Urine pH 6.5 (5.0-7.0)
[2023-07-07 02:35] VITALS: TEMP 98
[2023-07-07 02:40] VITALS: O2SAT 100
[2023-07-07 02:46] VITALS: BP 116/59
--- NOTE | 2023-07-07 16:27 | RAD REPORT ---
EXAM DESCRIPTION: US - OB Limited - 07/07/2023 12:17 am CLINICAL HISTORY: 32 years Female, ABD PAIN COMPARISON: None. TECHNIQUE: Transvaginal images were obtained. FINDINGS: Uterus: Anteverted, measuring 10.6 x 4.9 x 7.0 cm. No myometrial mass. Gestational sac/Yolk sac/ pole: None identified. Endometrium is ill-defined due to some prominen t shadowing in this region. Question of some heterogeneous contents in the cervix. There is some inte rnal blood flow in this region which could be due to retained products of conception. Right ovary: Not visualized. Left ovary: Not visualized. Adnexa: No additional abnormality. Free fluid: None identified. IMPRESSION: No intrauterine is identified. Endometrium is well-defined due to some shadowi ng. There may be some heterogeneous contents in the cervix with internal blood flow in this region, c oncerning for retained products of conception. Electronically signed by: Lolita Felix MD 07/07/2023 12:39 AM CDT Due to temporary technical issues with the PACS/Fluency reporting system, reports are being signed by the in house radiologists without review as a courtesy to insure prompt reporting. The interpreting radiologist is fully responsible for the content of the report.
== END 2023-07-07 02:09 | disposition short-term general hospital (02) ==
LOC: ER 23:01
DX: O03.1 Delayed or excessive hemorrhage following incomplete spontaneous abortion (principal); O03.39 Incomplete spontaneous abortion with other complications
CPT/HCPCS: 85025; 81001; 36415; 86900; 86901; 84702; 83690; 80053; 76815; 96375; 96374; 99285; J2405 ×2; J7042; J7030